=== PATIENT | female | born 1995 | race Hispanic/Latino ===

== ENCOUNTER 2020-03-31 14:32 | Outpatient (CLI) | payer MEDICAID ==
--- NOTE | 2020-03-31 15:24 | ULT ---
LIMITED RIGHT BREAST ULTRASOUND: 03/31/20 HISTORY: Lump/pain in the right upper inner breast. FINDINGS/IMPRESSION: Sonographic evaluation of the right upper inner breast demonstrates no abnormality. Further evaluation (including biopsy) should be based on clinical findings/suspicion. POS: OFF
== END 2020-03-31 14:33 | disposition home or self-care (01) ==
LOC: BICULT 14:32
PROVIDERS: ATTEND Nurse Practitioner Women's Health
DX: N63.12 Unspecified lump in the right breast, upper inner quadrant (principal)